=== PATIENT | male | born 1985 | race Caucasian/White ===

== ENCOUNTER 2017-08-27 06:54 | Emergency (ER) | payer BC ==
[2017-08-27] MEDS: BUPIVACAINE 0.25% (STERILE-PAK) 30 ML INJ INJ (07:25)
[2017-08-27] MEDS ORDERED: BUPIVACAINE 0.25% (MPF) 10 ML 10 ML VIAL INJ (07:30)
== END 2017-08-27 08:40 | disposition home or self-care (01) ==
LOC: FTE 06:54
DX: M62.830 Muscle spasm of back (principal); R40.2412 Glasgow coma scale score 13-15, at arrival to emergency department
CPT/HCPCS: 20552; 99283-25